=== PATIENT | female | born 1935 | race Caucasian/White ===

== ENCOUNTER → 2017-12-13 | Outpatient (CLI) | payer MEDICARE ==
--- NOTE | 2017-12-13 11:11 | XR ---
EXAMINATION TYPE: XR chest 2V DATE OF EXAM: 12/13/2017 COMPARISON: 08/17/2010 INDICATION: Abnormal weight loss TECHNIQUE: Frontal and lateral views of the chest are obtained. FINDINGS: The heart size is normal. The pulmonary vasculature is normal. The lungs are clear. Prior cardiac surgery is evident. IMPRESSION: 1. No acute pulmonary process.
--- NOTE | 2017-12-13 13:24 | BD ---
EXAMINATION TYPE: MG DEXA axial skeleton. DATE OF EXAM: 12/13/2017 COMPARISON: NONE CLINICAL HISTORY: Height: 5 FT Weight: 140 FRAX RISK QUESTIONS: Alcohol (3 or more units per day): NO Family History (Parent hip fracture): UNKNOWN Glucocorticoids (More than 3mos): NO (Ex: prednisone, prednisolone, methylprednisolone, dexamethasone, and hydrocortisone). History of Fracture in Adulthood: YES Secondary Osteoporosis: 1. Type 1 Diabetes: NO 2. Hyperthyroidism: NO 3. Menopause before 45: YES 4. Malnutrition: NO 5. Chronic liver disease: NO Rheumatoid Arthritis: NO Current Tobacco Use: NO RISK FACTORS HISTORY OF: History of Wrist Fracture: RT WRIST When: AGE 77 Surgery to Spine/Hip(right/left)/Wrist (right/left): RUCHI HIP REPLACEMENTS When: UNSURE Active: YES Postmenopausal woman: UNSURE Lost more than 2 inches in height since high school: YES MEDICATIONS: Prednisone or other steroids: How Long: Additional Medications: BLOOD PRESSURE MEDS, CHOLESTEROL MEDS, BABY ASPIRIN, Additional History: POOR HISTORIAN, FORGOT MED LIST EXAM MEASUREMENTS: Bone mineral densitometry was performed using the [employer] System. Bone mineral density as measured about the Lumbar spine is: ----- L1-L4(G/cm2): 1.164 T Score Values are as follows: ----- L2: -1.1 ----- L3: 0.2 ----- L4: 0.4 ----- L1-L4: -0.1 MOST RECENT DONE IN DRS OFFICE IMPRESSION: Normal (Values between +1 and -1 indicate normal bone mass). Consider repeating this study in 5 year s or sooner if there is some new clinical indication. NOTE: T-SCORE=SD OF THE YOUNG ADULT MEAN.
--- NOTE | 2017-12-15 10:52 | MM ---
Reason for exam: screening (asymptomatic). History: Patient is postmenopausal. Physical Findings: A clinical breast exam by your physician is recommended on an annual basis and results should be correlated with mammographic findings. MG Screening Mammo w CAD Bilateral CC and MLO view(s) were taken. No prior studies available for comparison. The breast tissue is heterogeneously dense. This may lower the sensitivity of mammography. Benign calcifications bilaterally. ASSESSMENT: Benign, BI-RAD 2 RECOMMENDATION: Routine screening mammogram of both breasts in 1 year.
== END | disposition home or self-care (01) ==
LOC: RADBDWWP 09:05
PROVIDERS: ATTEND Family Medicine
DX: Z12.31 Encounter for screening mammogram for malignant neoplasm of breast (principal); Z78.0 Asymptomatic menopausal state; R63.4 Abnormal weight loss
CPT/HCPCS: 71046; 77067; 77080

== ENCOUNTER → 2018-12-14 | Outpatient (CLI) | payer MEDICARE ==
--- NOTE | 2018-12-17 11:57 | MM ---
Reason for exam: screening (asymptomatic). Last mammogram was performed 1 year ago. History: Patient is postmenopausal. Physical Findings: A clinical breast exam by your physician is recommended on an annual basis and results should be correlated with mammographic findings. MG 3D Screening Mammo W/Cad Bilateral CC and MLO view(s) were taken. Prior study comparison: December 13, 2017, bilateral MG screening mammo w CAD. The breast tissue is heterogeneously dense. This may lower the sensitivity of mammography. Vascular calcifications. There is no discrete abnormality. No significant changes when compared with prior studies. ASSESSMENT: Benign, BI-RAD 2 RECOMMENDATION: Routine screening mammogram of both breasts in 1 year.
== END | disposition home or self-care (01) ==
LOC: RADMAMWWP 10:02
PROVIDERS: ATTEND Family Medicine
DX: Z12.31 Encounter for screening mammogram for malignant neoplasm of breast (principal)
CPT/HCPCS: 77063; 77067

== ENCOUNTER → 2020-06-23 | Outpatient (CLI) | payer MEDICARE ==
--- NOTE | 2020-06-23 10:05 | BD ---
EXAMINATION TYPE: Axial Bone Density DATE OF EXAM: 06/23/2020 COMPARISON: NONE CLINICAL HISTORY: Height: 4 FT 11 IN Weight: 132 FRAX RISK QUESTIONS: Alcohol (3 or more units per day): NO Family History (Parent hip fracture): UNKNOWN ADOPTED Glucocorticoids (More than 3mos): NO (Ex: prednisone, prednisolone, methylprednisolone, dexamethasone, and hydrocortisone). History of Fracture in Adulthood: NO Secondary Osteoporosis: 1. Type 1 Diabetes: NO 2. Hyperthyroidism: NO 3. Menopause before 45: NO 4. Malnutrition: NO 5. Chronic liver disease: NO Rheumatoid Arthritis: YES Current Tobacco Use: NO RISK FACTORS HISTORY OF: Surgery to Spine/Hip(right/left)/Wrist (right/left): RUCHI HIP REPLACEMENT When: NO SURE WHAT YEARS THEY WERE DONE Family History of Osteoporosis: UNKNOWN ADOPTED Active: YES Postmenopausal woman: AGE 47 Lost more than 2 inches in height since high school: YES Poor Health: FAIR MEDICATIONS: Additional Medications: FUROSEMIDE, ASPIRIN, ATENOLOL, VIT D, FEORINAL NEEDED, LINZESS Additional History: EXAM MEASUREMENTS: Bone mineral densitometry was performed using the [employer] System. Bone mineral density as measured about the Lumbar spine is: ----- L1-L4(G/cm2): 1.122 T Score Values are as follows: ----- L2: -2.5 ----- L3: -0.3 ----- L4: -0.6 ----- L1-L4: -0.5 Bone mineral density has: DECREASED -9.6 % since study of: 2017 Bone mineral density about the L Wrist (g/cm2): 0.357 T Score values are as follows: -----Dist. R+U: -5.7 -----Prox. R+U: -3.7 -----Radius total: -5.3 BASELINE OF WRIST IMPRESSION: NOTE: T-SCORE=SD OF THE YOUNG ADULT MEAN. Osteoporosis
--- NOTE | 2020-06-24 11:34 | MM ---
Reason for exam: screening (asymptomatic). Last mammogram was performed 1 year and 6 months ago. History: Patient is postmenopausal. Physical Findings: A clinical breast exam by your physician is recommended on an annual basis and results should be correlated with mammographic findings. MG 3D Screening Mammo W/Cad Bilateral CC and MLO view(s) were taken. XCCL view(s) were taken of the right breast. Prior study comparison: December 14, 2018, bilateral MG 3d screening mammo w/cad. December 13, 2017, bilateral MG screening mammo w CAD. The breast tissue is heterogeneously dense. This may lower the sensitivity of mammography. Stable vascular calcifications. There is no discrete abnormality. No significant changes when compared with prior studies. ASSESSMENT: Benign, BI-RAD 2 RECOMMENDATION: Routine screening mammogram of both breasts in 1 year.
== END | disposition home or self-care (01) ==
LOC: RADMAMWWP 08:48
PROVIDERS: ATTEND Family Medicine
DX: Z12.31 Encounter for screening mammogram for malignant neoplasm of breast (principal); M81.0 Age-related osteoporosis without current pathological fracture
CPT/HCPCS: 77063; 77067; 77080

== ENCOUNTER 2021-02-16 06:01 | Day surgery (SDC) | payer MEDICARE ==
[2021-02-12 10:40] VITALS: BMI 21.9
[~2021-02-16 06:01] MED LIST: SODIUM CHLORIDE 0.9% 1,000 ML IV SCH
[2021-02-16 06:33] VITALS: RESP 16; TEMP 97.5
[2021-02-16] MEDS ORDERED: PROPOFOL 10 MG/ML 20 ML VIAL IV ONE (07:20)
[2021-02-16] MEDS ORDERED: ATROPINE SULFATE 0.1 MG/ML 10ML SYRINGE ONE (07:20)
[2021-02-16] MEDS ORDERED: ePHEDrine SULFATE/0.9% NACL/PF 50 MG/5 ML SYRINGE IV ONE (07:20)
--- NOTE | 2021-02-16 08:46 | CE ---
CARDIAC ELECTROPHYSIOLOGY REPORT ELECTRICAL CARDIOVERSION: DATE OF SERVICE: 02/16/2021 PROCEDURE PERFORMED: Electrical cardioversion. INDICATION: Persistent atrial fibrillation, unresponsive to pharmacological efforts. CLINICAL INFORMATION: Mrs. Sravani Morris is an 85-year-old lady with a history of large ASD status post percutaneous closure. She has pulmonary hypertension and has developed atrial fibrillation persistent, unresponsive to pharmacological agents. Ejection fraction is well preserved. She has moderate to severe pulmonary hypertension. She was advised electrical cardioversion after adequate anticoagulation and fairly decent rate control. She was on a combination of amiodarone and metoprolol tartrate. She was brought in for the procedure electively. Risks, benefits, options, rationale were explained to the patient and family members. PROCEDURE NOTE: Under the influence of ultra short-acting intravenous anesthetic agent with the attendance of the anesthesiologist, a single 250-joule shock was delivered to the chest with anterior and posterior patches. Patient converted to sinus rhythm and developed sinus bradycardia prolonged requiring a combination of both ephedrine of 25 mg IV push and atropine 0.5 mg IV push. She was also hypotensive for a brief period. She had then a run of junctional rhythm and then went back into sinus rhythm at about 48 beats per minute. Hemodynamically stable and neurologically intact. Blood pressure of 130/80. The patient was therefore stable after the procedure after a transient episode of hypotension and bradycardia. She may have significant suppression of her sinus node with a combination of amiodarone and metoprolol. The patient is doing well post procedure. Details were discussed with the patient and family. I expect she will be discharged later on today and I will see her in the office in the next 7-10 days. She will go home only on amiodarone, beta robbie will be held. Prior to discharge, she will be ambulating and should have had a meal. I will see her in the office within a week. MMODL / IJN: [id number] /
[2021-02-16 09:42] VITALS: BP 112/56; PULSE 48
== END 2021-02-16 09:40 | disposition home or self-care (01) ==
LOC: CATHCVL 06:01
PROVIDERS: ATTEND Internal Medicine Interventional Cardiology
DX: I48.19 Other persistent atrial fibrillation (principal); I10 Essential (primary) hypertension; E78.5 Hyperlipidemia, unspecified; E66.9 Obesity, unspecified; Z87.74 Personal history of (corrected) congenital malformations of heart and circulatory system; Z79.899 Other long term (current) drug therapy; Z79.01 Long term (current) use of anticoagulants; Z87.891 Personal history of nicotine dependence; E78.00 Pure hypercholesterolemia, unspecified
CPT/HCPCS: 92960; 87635; J0461; J2704; 93005